=== PATIENT | female | born 2000 | race Caucasian/White ===

== ENCOUNTER → 2019-09-30 10:13 | Outpatient (CLI) | payer OTHER, SELFPAY ==
[2019-09-30 11:14] LABS: Alanine Aminotransferase 23 IU/L (<35); Albumin 4.9 g/dL (3.5-5.0); Albumin Globulin Ratio 1.5 (1.0-2.8); Alkaline Phosphatase 102 U/L (38-126); Aspartate Aminotransferase 24 IU/L (14-36); BUN Creatinine Ratio 13.8 (6-22); Bilirubin Total 0.6 mg/dL (0.2-1.3); Blood Urea Nitrogen 11 mg/dL (7-17); Calcium 10.1 mg/dL (8.4-10.2); Carbon Dioxide 28 mmol/L (22-32); Chloride 102 mmol/L (98-107); Estimated Glomerular Filt Rate > 60.0 mL/min (>60); Globulin 3.2 g/dL (1.7-4.1); Glucose 130 mg/dL (70-100); HEMOLYSIS < 15 (0-50); Potassium 3.5 mmol/L (3.4-5.1); Sodium 142 mmol/L (137-145); Total Protein 8.1 g/dL (6.3-8.2)
[2019-09-30 11:41] LABS: Pregnancy Test Serum,Qual Negative (Negative)
[2019-09-30 11:54] LABS: Free T4, Direct Thyroxine 1.35 ng/dL (0.78-2.19)
[2019-09-30 12:08] LABS: Thyroid Stimulating Hormone 4.35 uIU/mL (0.47-4.68)
[2019-09-30 12:53] LABS: UR Morphine/Opiate cutoff 300 Negative (Negative); Ur Creatinine Normal (Normal); Ur Specific Gravity Normal (Normal); Urine Amphetamines Negative (Negative); Urine Barbiturates Negative (Negative); Urine Benzodiazepines Negative (Negative); Urine Cocaine Negative (Negative); Urine MDMA Negative (Negative); Urine Methadone Negative (Negative); Urine Methamphetamines Negative (Negative); Urine Oxycodone Negative (Negative); Urine Phencyclidine Negative (Negative); Urine Tetrahydrocannabinol Positive (Negative); Urine Tricyclic Antidepressant Negative (Negative); Urine pH Normal (Normal)
[2019-10-04 08:59] LABS: Lamotrigine Lamictal 2.6 mcg/mL (4.0-18.0)
== END ==
PROVIDERS: PCP Family Medicine; Visit Provider Psychiatry & Neurology Psychiatry
DX: F31.73 Bipolar disorder, in partial remission, most recent episode manic (principal)
CPT/HCPCS: 36415; 80053; 80175; 80305; 84439; 84443; 84703

== ENCOUNTER 2020-02-14 15:45 | Emergency (ER) | payer OTHER, MEDICAID, SELFPAY ==
[2020-02-14] VITALS (7 sets, daily range): BP systolic 118–138; BP diastolic 69–85; PULSE 79–115; RESP 18; TEMP 36.3–38.1; O2SAT 96–100; BMI 30.2
[2020-02-14] MEDS: ACETAMINOPHEN 325 MG TABLET 650 MG PO ×2 (17:54→21:47)
[2020-02-14 18:04] LABS: RBC Urine 5-10/HPF (0-5/HPF); Squamous Epithelial Cell Urine >30 /HPF (0-5/HPF)
[2020-02-14 18:05] LABS: Bacteria Urine Many (>30); Culture Indicated Urine Specimen Cultured; Urine Comments LEU ESTERASE +
[2020-02-14 18:06] LABS: WBC Urine 10-30/HPF (0-5/HPF)
[2020-02-14] MEDS: ONDANSETRON 4 MG/2 ML INJ IV (18:45)
[2020-02-14] MEDS: KETOROLAC 60 MG/2 ML VIAL 15 MG IV (18:45)
[2020-02-14] MEDS: SODIUM CHLORIDE 0.9% 1,000 ML 1000 ML IV (18:46)
--- NOTE | 2020-02-14 19:09 | ED.FEVER ---
HPI - Fever <Esvin NILES Ch - Last Filed: 02/14/20 21:51> General Chief Complaint: Fever Stated Complaint: fever, vomiting x36 hours Time Seen by Provider: 02/14/20 18:07 Source: patient Mode of arrival: Ambulatory Limitations: no limitations History of Present Illness HPI Narrative: This is a 19-year-old female, nonsmoker, who presents to ED with significant other with chief complain of fever, nausea and vomiting, and abdominal pain since yesterday morning at 5:00 a.m.. Patient reports T-max at home was 100.6. Pain in abdomen is located in mid abdomen without radiation and had vomited more than 20 times since her symptoms started. Pain is throbbing and sharp in character. Patient reports emesis is bile appearance. Patient denies urinary symptoms such as urgency, frequency, hematuria, dysuria, flank pain. Patient denies diarrhea. Patient states 1st she thought she had food poisoning after she had gathering at her friend's place on Saturday evening and had about 4-5 alcohol drinks over 6 hours. Patient also reports she smokes pot regularly but has not smoked for last 2 days. LMP was 10 days ago which was normal for her. Patient denies cough, sore throat, contact with people who has coronavirus, recent travel, or short of breath. Patient reports occasional headache and body aches. Patient denies chest pain, rash or skin injuries. Related Data Home Medications Medication Instructions Recorded Confirmed cholecalciferol (vitamin D3) 125 5,000 unit PO DAILY 09/30/19 01/06/20 mcg (5,000 unit) capsule omega 9-nbs-frq-fish oil 1,000 mg 1 cap PO DAILY 09/30/19 01/06/20 (120 mg-180 mg) capsule Previous Rx's Medication Instructions Recorded diazepam 5 mg tablet 5 mg PO DAILY PRN #7 tab 12/02/19 propranolol 20 mg tablet 20 mg PO TID #60 tab 12/10/19 lamotrigine 200 mg tablet 200 mg PO BID #60 tab 01/06/20 venlafaxine 150 mg 150 mg PO DAILY #30 cap 01/06/20 capsule,extended release 24 hr gabapentin 300 mg capsule 300 mg PO BID #60 cap 02/08/20 acetaminophen 650 mg NV Q6H PRN #1 each 02/14/20 ondansetron 4 mg PO Q6-8H PRN #7 tab 02/14/20 Allergies Allergy/AdvReac Type Severity Reaction Status Date / Time mirtazapine Allergy Intermediate itching, Verified 01/06/20 10:37 skin crawling sensation sertraline [From Zoloft] AdvReac Severe severe Verified 01/06/20 10:37 migraines Review of Systems <NILES Sandoval - Last Filed: 02/14/20 21:51> Review of Systems Narrative: General: See HPI HEENT: Denies sinus pain, ear pain, sore throat, difficulty swallowing, dizziness. Respiratory: Denies dyspnea, cough, wheezing, hemoptysis, sputum. Cardiovascular: Denies chest pain, palpitations, orthopnea, edema. Gastrointestinal: See HPI : Denies dysuria, frequency, incontinence, hematuria, urinary retention. Musculoskeletal: Denies weakness, joint pain or bony pain, (+) myalgia. Skin: Denies rash, skin lesions, or other. Neurologic: Denies weakness, headache, numbness, change in speech, confusion, seizures, incoordination. Psychiatric: No concerning psychosocial issues. 12-point review of systems is negative except for those stated above. Patient History <NILES Sandoval - Last Filed: 02/14/20 21:51> Medical History Depression (Acute) Social History Smoking Status: Never smoker Smoking Status: Never smoker alcohol intake frequency: a few times a month Alcohol type: beer Substance Use Type: marijuana Exam <NILES Sandoval - Last Filed: 02/14/20 21:51> Narrative Exam Narrative: GEN: Alert, oriented x 3, well appearing and nourished, and in no acute distress. Head: Normal cephalic, atraumatic. No scalp or temporal tenderness, palpable mass or rash. EYES: Pupils are equal, round, and reactive to light and accommodation. Extraocular muscles are intact bilaterally. There is no subconjunctival hemorrhage, exudate and sclera non-icteric. ENT: Hearing grossly intact. Nose without bleeding, purulent discharge or deviation. Mucous membrane moist, no mucosal lesion. Throat without erythema, tonsillar hypertrophy or exudate. Uvula in midline, airway patent. Neck: Trachea in midline. No JVD, non-tender without lymphadenopathy. No masses or thyroid megaly. Supple, non-tender and no meningeal signs. CARDIAC: Normal regular rate and rhythm without murmurs, gallops, or rubs. No chest wall tenderness. No peripheral edema, cyanosis or pallor. Capillary refill is less than 2 seconds. RESPIRATORY: Lungs are clear to auscultate bilaterally. No cough, wheezes, rales, or rhonchi. No stridor, respiratory distress, increase work of breathing, or accessary muscle used. ABD: Abdomen soft and non-distended. Mild discomfort to palpate in mid abdomen. No guarding or rebound tenderness to palpate. Bowel sounds are normal in all 4 quadrants. There is no palpable masses or organomegaly. EXT: Full painless ROM of all extremities with no loss of sensation, strength, effusion or edema. SKIN: Warm, sweaty, normal color for patient. No erythema, lesions or rash over visible areas. BACK: Nontender without deformity or crepitance. No flank tenderness. NEUROLOGICAL: Alert and oriented to place, time and person. Sensation and motor function intact bilaterally. No facial droops, dysphasia. PSYCHIATRIC: Good judgement and reason, without hallucinations, abnormal affect or abnormal behaviors during the examination. Patient is not suicidal. Initial Vital Signs Initial Vital Signs: Vital Signs Temperature 97.3 F L 02/14/20 15:49 Pulse Rate 115 H 02/14/20 15:49 Respiratory Rate 18 02/14/20 15:49 Blood Pressure 138/85 02/14/20 15:49 Pulse Oximetry 97 02/14/20 15:49 <Alpesh Wang DO - Last Filed: 02/15/20 02:40> Initial Vital Signs Initial Vital Signs: Vital Signs Temperature 97.3 F L 02/14/20 15:49 Pulse Rate 115 H 02/14/20 15:49 Respiratory Rate 18 02/14/20 15:49 Blood Pressure 138/85 02/14/20 15:49 Pulse Oximetry 97 02/14/20 15:49 Scores <Esvin NILES Ch - Last Filed: 02/14/20 21:51> GCS [place] coma scale eye opening: Spontaneous [place] coma scale verbal response: Orientated [place] coma scale motor response: Obey commands [place] coma scale total score: 15 Course <Esvin Shields-Johanna PERSON INVESTIGATOR - Last Filed: 02/14/20 21:51> Orders Ordered: ED Orders 02/14/20 17:59 Urine Culture Stat Urine Microscopic Stat 02/14/20 18:51 Comprehensive Metabolic Panel Stat Lactate (Lactic Acid) Stat Lipase Stat Procalcitonin Stat 02/14/20 18:55 Blood Culture Stat Complete Blood Count AUTO DIFF Stat 02/14/20 19:31 CT abdomen pelvis w con Stat Discontinued Medications Acetaminophen (Tylenol) 650 mg PO NOW ONE Stop: 02/14/20 17:48 Last Admin: 02/14/20 17:54 Dose: 650 mg Documented by: MOISÉS Acetaminophen (Tylenol) 650 mg PO NOW ONE Stop: 02/14/20 21:39 Last Admin: 02/14/20 21:47 Dose: 650 mg Documented by: WAYNE Sodium Chloride (Normal Saline 0.9%) 1,000 mls @ 1,000 mls/hr IV BOLUS ONE Stop: 02/14/20 19:27 Last Infusion: 02/14/20 20:38 Dose: 0 mls/hr Documented by: Admin: 02/14/20 18:46 Dose: 1,000 mls/hr Documented by: MOISÉS Ketorolac Tromethamine (Toradol) 15 mg IV NOW ONE Stop: 02/14/20 18:29 Last Admin: 02/14/20 18:45 Dose: 15 mg Documented by: MOISÉS Ondansetron HCl (Zofran) 4 mg IV NOW ONE Stop: 02/14/20 18:29 Last Admin: 02/14/20 18:45 Dose: 4 mg Documented by: MOISÉS Ondansetron HCl (Zofran Odt Prepack) 1 bottle MISC SEEINSTR ONE Stop: 02/14/20 20:40 Last Admin: 02/14/20 21:37 Dose: 1 bottle Documented by: WAYNE Pantoprazole Sodium (Protonix) 40 mg IV NOW ONE Stop: 02/14/20 19:32 Last Admin: 02/14/20 19:56 Dose: 40 mg Documented by: MOISÉS Vital Signs Vital signs: Vital Signs - 8 hr 02/14/20 18:45 02/14/20 19:17 02/14/20 19:19 Temperature 98.8 F 98.8 F Pulse Rate 79 Respiratory Rate Blood Pressure [Left Arm] 132/83 Pulse Oximetry 97 02/14/20 19:30 02/14/20 21:39 02/14/20 21:47 Temperature 100.6 F H 100.6 F H Pulse Rate 92 H 91 H Respiratory Rate 18 Blood Pressure [Left Arm] 128/73 118/69 Pulse Oximetry 100 96 <Alpesh Wang DO - Last Filed: 02/15/20 02:40> Orders Ordered: ED Orders 02/14/20 17:59 Urine Culture Stat Urine Microscopic Stat 02/14/20 18:51 Comprehensive Metabolic Panel Stat Lactate (Lactic Acid) Stat Lipase Stat Procalcitonin Stat 02/14/20 18:55 Blood Culture Stat Complete Blood Count AUTO DIFF Stat 02/14/20 19:31 CT abdomen pelvis w con Stat Discontinued Medications Acetaminophen (Tylenol) 650 mg PO NOW ONE Stop: 02/14/20 17:48 Last Admin: 02/14/20 17:54 Dose: 650 mg Documented by: MOISÉS Acetaminophen (Tylenol) 650 mg PO NOW ONE Stop: 02/14/20 21:39 Last Admin: 02/14/20 21:47 Dose: 650 mg Documented by: WAYNE Sodium Chloride (Normal Saline 0.9%) 1,000 mls @ 1,000 mls/hr IV BOLUS ONE Stop: 02/14/20 19:27 Last Infusion: 02/14/20 20:38 Dose: 0 mls/hr Documented by: Admin: 02/14/20 18:46 Dose: 1,000 mls/hr Documented by: MOISÉS Ketorolac Tromethamine (Toradol) 15 mg IV NOW ONE Stop: 02/14/20 18:29 Last Admin: 02/14/20 18:45 Dose: 15 mg Documented by: MOISÉS Ondansetron HCl (Zofran) 4 mg IV NOW ONE Stop: 02/14/20 18:29 Last Admin: 02/14/20 18:45 Dose: 4 mg Documented by: MOISÉS Ondansetron HCl (Zofran Odt Prepack) 1 bottle MISC SEEINSTR ONE Stop: 02/14/20 20:40 Last Admin: 04/26/20 21:37 Dose: 1 bottle Documented by: WAYNE Pantoprazole Sodium (Protonix) 40 mg IV NOW ONE Stop: 02/14/20 19:32 Last Admin: 02/14/20 19:56 Dose: 40 mg Documented by: BTWM Vital Signs Vital signs: Vital Signs - 8 hr 02/14/20 18:45 02/14/20 19:17 02/14/20 19:19 Temperature 98.8 F 98.8 F Pulse Rate 79 Respiratory Rate Blood Pressure [Left Arm] 132/83 Pulse Oximetry 97 02/14/20 19:30 02/14/20 21:39 02/14/20 21:47 Temperature 100.6 F H 100.6 F H Pulse Rate 92 H 91 H Respiratory Rate 18 Blood Pressure [Left Arm] 128/73 118/69 Pulse Oximetry 100 96 MDM - Fever <Esvin ShieldsNILES Izaguirre - Last Filed: 02/14/20 21:51> Differential Diagnosis Differential diagnosis: Likely fever of unknown origin, gastroenteritis, pyelonephritis, sepsis and other (gastritis, pancreatitis, appendicitis, UTI/cystitis) Medical Records Attestation: I reviewed the patient's medical records. Lab Data Attestation: I reviewed the patient's lab results. Result diagrams: 02/14/20 18:55 02/14/20 18:51 Labs: Lab Results 02/14/20 02/14/20 02/14/20 Range/Units 17:59 18:51 18:51 WBC (4.5-11.0) X10^3/uL RBC (4.0-5.2) X10^6/uL Hgb (12.0-16.0) g/dL Hct (36-46) % MCV (80-100) fL MCH (26-34) PG MCHC (30-36) % RDW (11.6-14.8) % Plt Count (150-400) X10^3/uL Neut % (Auto) (50-75) % Lymph % (Auto) (25-40) % [place] % (Auto) (3-14) % Eos % (Auto) (2-4) % Baso % (Auto) (0-2) % Neut # (Auto) (7877-0496) /uL Lymph # (Auto) (1278-6080) /uL [place] # (Auto) (0-900) /uL Eos # (Auto) (0-450) /uL Baso # (Auto) (0-100) /uL Sodium 139 (137-145) mmol/L Potassium 3.7 (3.4-5.1) mmol/L Chloride 106 (98-107) mmol/L Carbon Dioxide 17 L (22-32) mmol/L BUN 8 (7-17) mg/dL Creatinine 0.69 (0.52-1.04) mg/dL Estimated GFR > 60.0 (>60) mL/min BUN/Creatinine Ratio 11.6 (6-22) Glucose 113 H (70-100) mg/dL Lactate (0.7-2.1) mmol/L Calcium 10.2 (8.4-10.2) mg/dL Total Bilirubin 0.8 (0.2-1.3) mg/dL AST 38 H (14-36) IU/L ALT 44 H (<35) IU/L Alkaline Phosphatase 97 (38-126) U/L Total Protein 9.2 H (6.3-8.2) g/dL Albumin 5.4 H (3.5-5.0) g/dL Globulin 3.8 (1.7-4.1) g/dL Albumin/Globulin Ratio 1.4 (1.0-2.8) Lipase 57 (23-300) U/L Procalcitonin < 0.05 (<0.5) ng/mL Urine RBC 5-10/hpf H (0-5/HPF) Urine WBC 10-30/hpf H (0-5/HPF) Ur Squamous Epith Cells >30 /hpf H (0-5/HPF) Urine Bacteria Many (>30) H (None) Ur Culture Indicated? Specimen cultured Micro UA Comment Nicolás esterase + 02/14/20 02/14/20 Range/Units 18:51 18:55 WBC 13.8 H (4.5-11.0) X10^3/uL RBC 5.85 H (4.0-5.2) X10^6/uL Hgb 17.2 H (12.0-16.0) g/dL Hct 50.3 H (36-46) % MCV 86.0 (80-100) fL MCH 29.3 (26-34) PG MCHC 34.1 (30-36) % RDW 15.6 H (11.6-14.8) % Plt Count 268 (150-400) X10^3/uL Neut % (Auto) 80.3 H (50-75) % Lymph % (Auto) 12.0 L (25-40) % [place] % (Auto) 7.3 (3-14) % Eos % (Auto) 0.1 L (2-4) % Baso % (Auto) 0.3 (0-2) % Neut # (Auto) 74418 H (6257-0106) /uL Lymph # (Auto) 1700 (4396-1774) /uL [place] # (Auto) 1000 H (0-900) /uL Eos # (Auto) 0 (0-450) /uL Baso # (Auto) 0 (0-100) /uL Sodium (137-145) mmol/L Potassium (3.4-5.1) mmol/L Chloride (98-107) mmol/L Carbon Dioxide (22-32) mmol/L BUN (7-17) mg/dL Creatinine (0.52-1.04) mg/dL Estimated GFR (>60) mL/min BUN/Creatinine Ratio (6-22) Glucose (70-100) mg/dL Lactate 1.4 (0.7-2.1) mmol/L Calcium (8.4-10.2) mg/dL Total Bilirubin (0.2-1.3) mg/dL AST (14-36) IU/L ALT (<35) IU/L Alkaline Phosphatase (38-126) U/L Total Protein (6.3-8.2) g/dL Albumin (3.5-5.0) g/dL Globulin (1.7-4.1) g/dL Albumin/Globulin Ratio (1.0-2.8) Lipase (23-300) U/L Procalcitonin (<0.5) ng/mL Urine RBC (0-5/HPF) Urine WBC (0-5/HPF) Ur Squamous Epith Cells (0-5/HPF) Urine Bacteria (None) Ur Culture Indicated? Micro UA Comment Point of Care Testing Test Results Negative Urine Dip Bedside Urine Glucose Negative Bedside Urine Bilirubin + 1 Bedside Urine Ketone +++ 80 Urine Specific [place] 1.030 Bedside Urine Occult Blood +++ Bedside Urine pH 6.0 Bedside Urine Protein +++ 300 Bedside Urine Urobilinogen +/- 1mg Bedside Urine Nitrite - Negative Bedside Urine Leukocytes ++ [address] scan - abdomen/pelvis: Radiologist's Impression: [address] [address] [address] Scan Report Signed Patient: Zenaida Tong MMR#: [id number] : 2000Acct:[id number] Age/Sex: FDate of Service: 02/14/20 Loc: ED Accession Number: [id number] Procedure: CT abdomen pelvis w con Ordering Provider: Esvin Ch PROCEDURE: CT ABDOMEN PELVIS W CON INDICATIONS: mid upper abd pain and fever TECHNIQUE: After the administration of intravenous contrast, 5 mm thick sections acquired from the diaphragm to the symphysis. 5 mm coronal and sagittal reformats were acquired. For radiation dose reduction, the following was used: automated exposure control, adjustment of mA and/or kV according to patient size. COMPARISON: None. FINDINGS: Image quality: Excellent. ABDOMEN: Lung bases: Lung bases are clear. Heart size is normal. Incidental note made of a pectus excavatum deformity. Solid organs: Liver is normal in size and enhancement. Focal fatty infiltration noted in the liver adjacent to the falciform ligament. Gallbladder is within normal limits. Biliary system is non dilated. Pancreas enhances normally. Spleen is normal in size and enhancement. No adrenal nodules. Kidneys demonstrate normal size and enhancement, without hydronephrosis. Peritoneum and bowel: Bowel loops demonstrate normal wall thickness and caliber. No free fluid or air. The appendix is not visualized appendicitis cannot be excluded. Nodes and vessels: No retroperitoneal or mesenteric adenopathy by size criteria. Aorta and inferior vena cava are normal in size. Miscellaneous: No ventral hernias. Umbilical piercing noted. PELVIS: Genitourinary: Bladder wall thickness is normal. There is a 5.1 x 3.1 x 4.2 cm adnexal region cyst. Miscellaneous: No inguinal hernias or adenopathy. Bones: No suspicious bony lesions. No vertebral body compression fractures. IMPRESSION: 1. 5.1 x 3.1 x 4.2 cm right adnexal region cystic lesion. Differential diagnosis includes ovarian cyst, ectopic , tubo-ovarian abscess and endometrioma. Recommend correlation with clinical findings, laboratory data and pelvic ultrasound for further characterization. 2. The appendix is not visualized. Appendicitis cannot be excluded. 3. No free fluid or free air. 4. No dilated loops of bowel. 5. Hepatic steatosis. Dictated by: Karla Ambriz MD, PhD on 02/14/2020 at 20:01 Approved by: Karla Ambriz MD, PhD on 02/14/2020 at 20:08 [facility] Narrative Medical decision making narrative: This is a 19 year old female who presents to ED with significant other with mid upper abdominal discomfort with nausea and vomiting for last 36 hours with fever with T-max of 100.6?. Patient reports she has been having over 20 times of emesis without blood emesis or stools. Upon arrival patient was tachycardic of 116 in rate with normal respiratory rate and blood pressure. She had 4-5 of alcohol drinks in the evening previous day and she also smokes marijuana regularly which she had not smoked for last 2 days. Patient denies previous history of similar symptoms. Patient denies exposure to Covid virus, cough, short of breath, sore throat. POC urine test shows high concentration with occult blood, protein, ketones, urine leukocytes esterase without nitrites. Micro urine test shows small amount of RBC, WBC, many bacteria along squamous epithelia cells which could be contaminated urine sample and culture is pending. Patient was medicated with IV fluid and Zofran which helped her with symptoms. Mildly elevated WBC of 13.8 with neutrophil of 80.3%. H&H is 17.2/50.3 which is slightly above normal range secondary to hemoconcentration. Chemistry test was unremarkable except mildly elevated liver function tests of AST of 38 and ALT of 44. Lipase was normal of 57. Lactate and procalcitonin was within normal. Abdomen and pelvis CT test was added after the blood test was reviewed and it indicates hepatic steatosis with normal gallbladder, biliary system, pancreas, spleen. Appendix was not clearly visualized per CT. Patient's physical exam of abdomen is not consistent with appendicitis. There is a right ovarian cyst measuring in 5.1 x 3.1 x 4.2 cm and patient states she was known for 3 years per pelvic ultrasound in the past with severe abdominal pain. Patient is currently has Nexplanon implant which has been effective for ovarian cyst/pain. Patient denies unusual vaginal discharge or pelvic pain at this time and pelvic exam has been deferred. COVID-19 swab is pending. Patient advised social distancing and self quarantine at home until she hears from us for Covid test result. Two sets of blood culture is pending. There is no clear source of fever found. Patient was feeling better after IV fluid and Zofran and was able to tolerate ice chips without vomiting. Strict return precautions were discussed with the patient and patient is being discharged to home with prepack Zofran and Tylenol per rectal prescription in case patient is not tolerating p.o. Tylenol. Patient verbalized understanding in agreement with treatment plan. <Alpesh Wang, DO - Last Filed: 02/15/20 02:40> Lab Data Labs: Lab Results 02/14/20 02/14/20 02/14/20 Range/Units 17:59 18:51 18:51 WBC (4.5-11.0) X10^3/uL RBC (4.0-5.2) X10^6/uL Hgb (12.0-16.0) g/dL Hct (36-46) % MCV (80-100) fL MCH (26-34) PG MCHC (30-36) % RDW (11.6-14.8) % Plt Count (150-400) X10^3/uL Neut % (Auto) (50-75) % Lymph % (Auto) (25-40) % [place] % (Auto) (3-14) % Eos % (Auto) (2-4) % Baso % (Auto) (0-2) % Neut # (Auto) (0650-3047) /uL Lymph # (Auto) (4574-1878) /uL [place] # (Auto) (0-900) /uL Eos # (Auto) (0-450) /uL Baso # (Auto) (0-100) /uL Sodium 139 (137-145) mmol/L Potassium 3.7 (3.4-5.1) mmol/L Chloride 106 (98-107) mmol/L Carbon Dioxide 17 L (22-32) mmol/L BUN 8 (7-17) mg/dL Creatinine 0.69 (0.52-1.04) mg/dL Estimated GFR > 60.0 (>60) mL/min BUN/Creatinine Ratio 11.6 (6-22) Glucose 113 H (70-100) mg/dL Lactate (0.7-2.1) mmol/L Calcium 10.2 (8.4-10.2) mg/dL Total Bilirubin 0.8 (0.2-1.3) mg/dL AST 38 H (14-36) IU/L ALT 44 H (<35) IU/L Alkaline Phosphatase 97 (38-126) U/L Total Protein 9.2 H (6.3-8.2) g/dL Albumin 5.4 H (3.5-5.0) g/dL Globulin 3.8 (1.7-4.1) g/dL Albumin/Globulin Ratio 1.4 (1.0-2.8) Lipase 57 (23-300) U/L Procalcitonin < 0.05 (<0.5) ng/mL Urine RBC 5-10/hpf H (0-5/HPF) Urine WBC 10-30/hpf H (0-5/HPF) Ur Squamous Epith Cells >30 /hpf H (0-5/HPF) Urine Bacteria Many (>30) H (None) Ur Culture Indicated? Specimen cultured Micro UA Comment Nicolás esterase + 02/14/20 02/14/20 Range/Units 18:51 18:55 WBC 13.8 H (4.5-11.0) X10^3/uL RBC 5.85 H (4.0-5.2) X10^6/uL Hgb 17.2 H (12.0-16.0) g/dL Hct 50.3 H (36-46) % MCV 86.0 (80-100) fL MCH 29.3 (26-34) PG MCHC 34.1 (30-36) % RDW 15.6 H (11.6-14.8) % Plt Count 268 (150-400) X10^3/uL Neut % (Auto) 80.3 H (50-75) % Lymph % (Auto) 12.0 L (25-40) % [place] % (Auto) 7.3 (3-14) % Eos % (Auto) 0.1 L (2-4) % Baso % (Auto) 0.3 (0-2) % Neut # (Auto) 94731 H (1255-3773) /uL Lymph # (Auto) 1700 (4974-1748) /uL [place] # (Auto) 1000 H (0-900) /uL Eos # (Auto) 0 (0-450) /uL Baso # (Auto) 0 (0-100) /uL Sodium (137-145) mmol/L Potassium (3.4-5.1) mmol/L Chloride (98-107) mmol/L Carbon Dioxide (22-32) mmol/L BUN (7-17) mg/dL Creatinine (0.52-1.04) mg/dL Estimated GFR (>60) mL/min BUN/Creatinine Ratio (6-22) Glucose (70-100) mg/dL Lactate 1.4 (0.7-2.1) mmol/L Calcium (8.4-10.2) mg/dL Total Bilirubin (0.2-1.3) mg/dL AST (14-36) IU/L ALT (<35) IU/L Alkaline Phosphatase (38-126) U/L Total Protein (6.3-8.2) g/dL Albumin (3.5-5.0) g/dL Globulin (1.7-4.1) g/dL Albumin/Globulin Ratio (1.0-2.8) Lipase (23-300) U/L Procalcitonin (<0.5) ng/mL Urine RBC (0-5/HPF) Urine WBC (0-5/HPF) Ur Squamous Epith Cells (0-5/HPF) Urine Bacteria (None) Ur Culture Indicated? Micro UA Comment Point of Care Testing Test Results Negative Urine Dip Bedside Urine Glucose Negative Bedside Urine Bilirubin + 1 Bedside Urine Ketone +++ 80 Urine Specific [place] 1.030 Bedside Urine Occult Blood +++ Bedside Urine pH 6.0 Bedside Urine Protein +++ 300 Bedside Urine Urobilinogen +/- 1mg Bedside Urine Nitrite - Negative Bedside Urine Leukocytes ++ 125 Esterase Discharge Plan Departure Patient Disposition: Home Clinical Impression: Fever Qualifiers: Fever type: unspecified Qualified Code(s): R50.9 - Fever, unspecified Abdominal pain Qualifiers: Abdominal location: upper abdomen, unspecified Qualified Code(s): R10.10 - Upper abdominal pain, unspecified Nausea & vomiting Qualifiers: Vomiting type: unspecified Vomiting Intractability: non-intractable Qualified Code(s): R11.2 - Nausea with vomiting, unspecified Discharge Date/Time: 02/14/20 21:49 Instructions: DI for Abdominal Pain-Adult, DI for Fever (Symptom) -- Adult, Nausea and Vomiting-Adult Activity Restrictions/Additional Instructions: You have been diagnosed with [fever, upper abdominal pain, nausea and vomiting. Your urine culture is pending and you will receive a phone call if you require antibiotic medications. There is mildly elevated WBC of 13.8 with stable H&H. Electrolyte/chemistry test were unremarkable but mildly elevated AST of 38 and ALT of 44 (liver function test) with normal lipase. Procalcitonin and lactate which are indicator for severe and bacteria infection are within normal. Urine test for was negative. Focal hepatic steatosis with normal gallbladder, biliary system, pancreas, spleen, kidneys. Appendix was not clearly visualized. There was no indication for bowel obstruction. Right ovarian cyst was appreciated per CT test measuring in 5.1 x 3.1 x 4.2 which you are already aware. Please avoid alcohol drinks and repeat liver function test in the near future.]. What to do: *Take your medications as directed. Please take Zofran as needed for nausea and hydrate adequately with clear liquids. You can take Tylenol and or Motrin as needed for discomfort and fever. I have prescribed Tylenol rectally if you can not tolerate by mouth due to nausea. Additional Zofran and Tylenol have been transmitted to [facility] in [place]. *Follow up with your primary care provider in 2-3 days, call for an appointment. Let them know you were seen in the ED and that we asked you to be seen in follow up. *Return to ED if you have any new, worsening, or concerning symptoms, such as [increasing pain and fever, chest pain, breathing difficulty, unable to tolerate fluids, feeling like faint or any acute concerns]. Prescriptions: New acetaminophen 650 mg suppository 650 mg NV Q6H PRN (Reason: fever or pain) Qty: 1 RF: 0 ondansetron 4 mg tablet,disintegrating 4 mg PO Q6-8H PRN (Reason: nausea and vomiting) Qty: 7 RF: 0 No Action lamotrigine 200 mg tablet 200 mg PO BID Qty: 60 RF: 3 venlafaxine 150 mg capsule,extended release 24hr 150 mg PO DAILY Qty: 30 RF: 3 propranolol 20 mg tablet 20 mg PO TID Qty: 60 RF: 2 cholecalciferol (vitamin D3) 5,000 unit capsule 5,000 unit PO DAILY RF: 0 omega 1-jdq-lhi-fish oil [Fish Oil] 1,000 mg (120 mg-180 mg) capsule 1 cap PO DAILY RF: 0 diazepam 5 mg tablet 5 mg PO DAILY PRN (Reason: muscle spasm) Qty: 7 RF: 0 gabapentin 300 mg capsule 300 mg PO BID Qty: 60 RF: 3 Referrals: [facility] [Outside] <Alpesh Wang DO - Last Filed: 02/15/20 02:40> Cosign ED Attending Cosignature Attestation: I was immediately available in the department for consultation. This documentation has been reviewed and I agree with assessment and plan. Supervised by Alpesh Wang DO
[2020-02-14 19:21] LABS: Lactate (Lactic Acid) 1.4 mmol/L (0.7-2.1)
[2020-02-14 19:22] LABS: Alanine Aminotransferase 44 IU/L (<35); Albumin 5.4 g/dL (3.5-5.0); Albumin Globulin Ratio 1.4 (1.0-2.8); Alkaline Phosphatase 97 U/L (38-126); Aspartate Aminotransferase 38 IU/L (14-36); BUN Creatinine Ratio 11.6 (6-22); Bilirubin Total 0.8 mg/dL (0.2-1.3); Blood Urea Nitrogen 8 mg/dL (7-17); Calcium 10.2 mg/dL (8.4-10.2); Carbon Dioxide 17 mmol/L (22-32); Chloride 106 mmol/L (98-107); Estimated Glomerular Filt Rate > 60.0 mL/min (>60); Globulin 3.8 g/dL (1.7-4.1); Glucose 113 mg/dL (70-100); HEMOLYSIS 24 (0-50); Lipase 57 U/L (23-300); Potassium 3.7 mmol/L (3.4-5.1); Sodium 139 mmol/L (137-145); Total Protein 9.2 g/dL (6.3-8.2)
[2020-02-14 19:24] LABS: Add Manual Diff / Slide Review NO; Basophils Absolute Auto 0 /uL (0-100); Basophils Percent Auto 0.3 % (0-2); Eosinophils Absolute Auto 0 /uL (0-450); Eosinophils Percent Auto 0.1 % (2-4); Hematocrit 50.3 % (36-46); Hemoglobin 17.2 g/dL (12.0-16.0); Lymphocytes Absolute Auto 1700 /uL (1100-4500); Mean Corpuscular HGB Conc 34.1 % (30-36); Mean Corpuscular Hemoglobin 29.3 PG (26-34); Monocytes Absolute Auto 1000 /uL (0-900); Monocytes Percent Auto 7.3 % (3-14); Neutrophils Absolute Auto 11000 /uL (1500-7000); Neutrophils Percent Auto 80.3 % (50-75); Platelet Count 268 X10^3/uL (150-400); Red Blood Cell Count 5.85 X10^6/uL (4.0-5.2); Red Cell Distribution Width 15.6 % (11.6-14.8); White Blood Cell Count 13.8 X10^3/uL (4.5-11.0)
--- NOTE | 2020-02-14 19:31 | DI.CT.S_ITS ---
PROCEDURE: CT ABDOMEN PELVIS W CON INDICATIONS: mid upper abd pain and fever TECHNIQUE: After the administration of intravenous contrast, 5 mm thick sections acquired from the diaphragm to the symphysis. 5 mm coronal and sagittal reformats were acquired. For radiation dose reduction, the following was used: automated exposure control, adjustment of mA and/or kV according to patient size. COMPARISON: None. FINDINGS: Image quality: Excellent. ABDOMEN: Lung bases: Lung bases are clear. Heart size is normal. Incidental note made of a pectus excavatum deformity. Solid organs: Liver is normal in size and enhancement. Focal fatty infiltration noted in the liver adjacent to the falciform ligament. Gallbladder is within normal limits. Biliary system is non dilated. Pancreas enhances normally. Spleen is normal in size and enhancement. No adrenal nodules. Kidneys demonstrate normal size and enhancement, without hydronephrosis. Peritoneum and bowel: Bowel loops demonstrate normal wall thickness and caliber. No free fluid or air. The appendix is not visualized appendicitis cannot be excluded. Nodes and vessels: No retroperitoneal or mesenteric adenopathy by size criteria. Aorta and inferior vena cava are normal in size. Miscellaneous: No ventral hernias. Umbilical piercing noted. PELVIS: Genitourinary: Bladder wall thickness is normal. There is a 5.1 x 3.1 x 4.2 cm adnexal region cyst. Miscellaneous: No inguinal hernias or adenopathy. Bones: No suspicious bony lesions. No vertebral body compression fractures. IMPRESSION: 1. 5.1 x 3.1 x 4.2 cm right adnexal region cystic lesion. Differential diagnosis includes ovarian cyst, ectopic , tubo-ovarian abscess and endometrioma. Recommend correlation with clinical findings, laboratory data and pelvic ultrasound for further characterization. 2. The appendix is not visualized. Appendicitis cannot be excluded. 3. No free fluid or free air. 4. No dilated loops of bowel. 5. Hepatic steatosis. Dictated by: Karla Ambriz MD, PhD on 02/14/2020 at 20:01 Approved by: Karla Ambriz MD, PhD on 02/14/2020 at 20:08
--- NOTE | 2020-02-14 19:44 | PC.NURSE ---
pt states she has felt nauseated and vomited once.
[2020-02-14] MEDS: PANTOPRAZOLE 40 MG VIAL IV (19:56)
[2020-02-14 20:01] LABS: Procalcitonin < 0.05 ng/mL (<0.5)
[2020-02-14] MEDS: ONDANSETRON 4 MG ODT PREPACK 1 BOTTLE MISC (21:37)
[2020-02-15 17:57] LABS: COVID19 Sendout Not Detected (Not Detect)
== END 2020-02-14 21:49 | disposition home or self-care (01) ==
PROVIDERS: Emergency Medicine; Emergency Provider Nurse Practitioner Family; PCP Family Medicine
DX: R50.9 Fever, unspecified (principal); R10.10 Upper abdominal pain, unspecified; R11.2 Nausea with vomiting, unspecified
CPT/HCPCS: 36415; 74177; 80053; 81003; 81015; 81025; 83605; 83690; 84145; 85025; 87040; 87086; 87635; 96361; 96374; 96375; 99284; C9113; J1885; J2405; Q9967

== ENCOUNTER → 2020-04-18 08:38 | Outpatient (CLI) | payer OTHER, MEDICAID, SELFPAY ==
[2020-04-18 10:25] LABS: Alanine Aminotransferase 23 IU/L (<35); Albumin 4.2 g/dL (3.5-5.0); Albumin Globulin Ratio 1.7 (1.0-2.8); Alkaline Phosphatase 80 U/L (38-126); Aspartate Aminotransferase 23 IU/L (14-36); BUN Creatinine Ratio 13.8 (6-22); Bilirubin Total 0.3 mg/dL (0.2-1.3); Blood Urea Nitrogen 9 mg/dL (7-17); Calcium 9.5 mg/dL (8.4-10.2); Carbon Dioxide 25 mmol/L (22-32); Chloride 105 mmol/L (98-107); Estimated Glomerular Filt Rate > 60.0 mL/min (>60); Globulin 2.5 g/dL (1.7-4.1); Glucose 99 mg/dL (70-100); HEMOLYSIS < 15 (0-50); Sodium 137 mmol/L (137-145); Total Protein 6.7 g/dL (6.3-8.2)
== END ==
PROVIDERS: PCP Family Medicine; Referring Provider Psychiatry & Neurology Psychiatry; Visit Provider Psychiatry & Neurology Psychiatry
DX: F31.4 Bipolar disorder, current episode depressed, severe, without psychotic features (principal); F41.1 Generalized anxiety disorder; M79.7 Fibromyalgia
CPT/HCPCS: 36415; 80053; 80175; 99214

== ENCOUNTER → 2020-10-04 10:27 | Outpatient (CLI) | payer OTHER, MEDICAID, SELFPAY ==
[2020-10-04 11:05] LABS: Alanine Aminotransferase 26 IU/L (<35); Albumin 4.8 g/dL (3.5-5.0); Albumin Globulin Ratio 1.4 (1.0-2.8); Alkaline Phosphatase 74 U/L (38-126); Aspartate Aminotransferase 22 IU/L (14-36); BUN Creatinine Ratio 26.1 (6-22); Bilirubin Total 0.3 mg/dL (0.2-1.3); Blood Urea Nitrogen 18 mg/dL (7-17); Calcium 10.2 mg/dL (8.4-10.2); Carbon Dioxide 28 mmol/L (22-32); Chloride 103 mmol/L (98-107); Estimated Glomerular Filt Rate > 60.0 mL/min (>60); Globulin 3.4 g/dL (1.7-4.1); Glucose 107 mg/dL (70-100); HEMOLYSIS < 15 (0-50); Potassium 4.5 mmol/L (3.4-5.1); Sodium 137 mmol/L (137-145); Total Protein 8.2 g/dL (6.3-8.2)
[2020-10-07 13:22] LABS: Lamotrigine Lamictal 3.4 ug/mL (2.0-20.0)
== END ==
PROVIDERS: PCP Family Medicine; Referring Provider Psychiatry & Neurology Psychiatry; Visit Provider Psychiatry & Neurology Psychiatry
DX: F31.4 Bipolar disorder, current episode depressed, severe, without psychotic features (principal); F41.1 Generalized anxiety disorder; M79.7 Fibromyalgia
CPT/HCPCS: 36415; 80053; 80175; 99214

== ENCOUNTER 2020-10-24 13:17 | Emergency (ER) | payer OTHER, MEDICAID, SELFPAY ==
[2020-10-24 13:32] VITALS: BP 133/86; PULSE 63; RESP 18; TEMP 36.3; O2SAT 100
--- NOTE | 2020-10-24 15:10 | ED.NAVMDI ---
HPI - Nausea/Vomiting/Diarrhea General Chief complaint: Nausea/Vomiting/Diarrhea Stated complaint: Throwing Up Every Hour Time Seen by Provider: 10/24/20 14:19 Source: patient Mode of arrival: Ambulatory Limitations: no limitations History of Present Illness HPI Narrative: This a 20-year-old female comes emergency department with complaint of vomiting that started yesterday at 10:30 a.m.. Patient states that she has had abdominal pain she locates it epigastric to left upper quadrant. She states she has been able to keep down a very minimal amount of water. Does not radiate to her chest. She denies shortness of breath. She was very diaphoretic yesterday. She has had normal bowel movements including yesterday. No melena, no hematochezia, no diarrhea constipation. No urinary frequency dysuria urgency. She has been having some vaginal bleeding and states she has very irregular periods. Patient states she does not typically get sick like this with menstruation. No vaginal discharge. She denies any back or flank pain. She takes several medications for anxiety and bipolar and has had difficulty keeping down. Related Data Previous Rx's Medication Instructions Recorded gabapentin 100 mg capsule See Rx Instructions PO BEDTIME 08/03/20 #210 cap lamotrigine 200 mg tablet 200 mg PO BID #60 tab 08/03/20 propranolol 20 mg tablet 20 mg PO TID #60 tab 08/03/20 quetiapine 25 mg tablet 25 mg PO TID #90 tab 08/03/20 venlafaxine 75 mg tablet,extended 75 mg PO DAILY #30 tab 08/03/20 release 24 hr prazosin 1 mg capsule 3 mg PO BEDTIME #60 cap 10/04/20 ondansetron HCl [Zofran] 4 mg PO Q6H PRN #5 tab 10/24/20 Allergies Allergy/AdvReac Type Severity Reaction Status Date / Time mirtazapine Allergy Intermediate itching, Verified 08/03/20 10:11 skin crawling sensation sertraline [From Zoloft] AdvReac Severe severe Verified 08/03/20 10:11 migraines Review of Systems Review of Systems ROS Unobtainable: All systems reviewed & are unremarkable except as noted in HPI and below Patient History Medical History (Updated 10/24/20 @ 16:42 by Reny Kevin DO) Depression Social History Smoking Status: Never smoker Smoking Status: Never smoker alcohol intake frequency: a few times a month Alcohol type: beer Substance Use Type: marijuana Exam Narrative Exam Narrative: GENERAL: Alert and oriented x three, well-nourished female in mild distress. HEENT: Head normocephalic, atraumatic, EOMI, pupils reactive, face symmetric, moist mucous membranes NECK: Supple, full range of motion CARDIOVASCULAR: Regular rate and rhythm without murmurs, rubs or gallops. RESPIRATORY: Breath sounds equal bilaterally, no wheezes rales or rhonchi. ABDOMEN: Soft, nontender to palpation. Normoactive bowel sounds all 4 quadrants. No guarding or rebound, rigidity, no mass : No CVA tenderness EXTREMITIES: Normal range of motion, no clubbing or edema. Neurovascularly intact NEUROLOGICAL: Cranial nerves II through XII grossly intact. Moving all extremities SKIN: Warm, dry, no petechiae, no rashes or lesions. Initial Vital Signs Initial Vital Signs: Vital Signs Temperature 97.3 F L 10/24/20 13:32 Pulse Rate 63 10/24/20 13:32 Respiratory Rate 18 10/24/20 13:32 Blood Pressure 133/86 10/24/20 13:32 Pulse Oximetry 100 10/24/20 13:32 Course Orders Ordered: ED Orders 10/24/20 15:06 COVID19 Stat Complete Blood Count AUTO DIFF Stat Comprehensive Metabolic Panel Stat 10/24/20 16:01 Lipase Stat 10/24/20 16:36 Urine Microscopic Stat Discontinued Medications Sodium Chloride (Normal Saline 0.9%) 1,000 mls @ 1,000 mls/hr IV BOLUS ONE Stop: 10/24/20 14:36 Last Infusion: 10/24/20 16:21 Dose: 0 mls/hr Documented by: Admin: 10/24/20 15:13 Dose: 1,000 mls/hr Documented by: LALI Sodium Chloride (Normal Saline 0.9%) 1,000 mls @ 1,000 mls/hr IV BOLUS ONE Stop: 10/24/20 17:25 Last Infusion: 10/24/20 17:03 Dose: 0 mls/hr Documented by: Admin: 10/24/20 16:31 Dose: 1,000 mls/hr Documented by: LALI Ondansetron HCl (Ondansetron 4 Mg/2 Ml Inj) 4 mg IV NOW ONE Stop: 10/24/20 13:38 Last Admin: 10/24/20 15:13 Dose: 4 mg Documented by: LALI Ondansetron HCl (Ondansetron 4 Mg/2 Ml Inj) 4 mg IV NOW ONE Stop: 10/24/20 16:02 Last Admin: 10/24/20 16:06 Dose: 4 mg Documented by: LALI Reevaluation(s) Time: 16:43 Vital Signs Vital signs: Vital Signs - 8 hr 10/24/20 13:32 10/24/20 17:09 Temperature 97.3 F L Pulse Rate 63 73 Respiratory Rate 18 24 Blood Pressure 133/86 132/77 Pulse Oximetry 100 97 MDM - Nausea/Vomiting/Diarrhea Lab Data Attestation: I reviewed the patient's lab results. Result diagrams: 10/24/20 15:06 10/24/20 15:06 Labs: Lab Results 10/24/20 10/24/20 10/24/20 Range/Units 15:06 15:06 15:06 WBC 12.0 H (4.5-11.0) X10^3/uL RBC 5.11 (4.0-5.2) X10^6/uL Hgb 14.4 (12.0-16.0) g/dL Hct 43.1 (36-46) % MCV 84.3 (80-100) fL MCH 28.2 (26-34) PG MCHC 33.4 (30-36) % RDW 14.9 H (11.6-14.8) % Plt Count 245 (150-400) X10^3/uL Neut % (Auto) 87.7 H (50-75) % Lymph % (Auto) 7.9 L (25-40) % [place] % (Auto) 4.0 (3-14) % Eos % (Auto) 0.0 L (2-4) % Baso % (Auto) 0.4 (0-2) % Neut # (Auto) 99595 H (2599-2625) /uL Lymph # (Auto) 1000 L (8225-5021) /uL [place] # (Auto) 500 (0-900) /uL Eos # (Auto) 0 (0-450) /uL Baso # (Auto) 0 (0-100) /uL Sodium 137 (137-145) mmol/L Potassium 3.5 (3.4-5.1) mmol/L Chloride 104 (98-107) mmol/L Carbon Dioxide 24 (22-32) mmol/L BUN 9 (7-17) mg/dL Creatinine 0.59 (0.52-1.04) mg/dL Estimated GFR > 60.0 (>60) mL/min BUN/Creatinine Ratio 15.3 (6-22) Glucose 130 H (70-100) mg/dL Calcium 9.6 (8.4-10.2) mg/dL Total Bilirubin 0.7 (0.2-1.3) mg/dL AST 30 (14-36) IU/L ALT 31 (<35) IU/L Alkaline Phosphatase 94 (38-126) U/L Total Protein 8.2 (6.3-8.2) g/dL Albumin 4.9 (3.5-5.0) g/dL Globulin 3.3 (1.7-4.1) g/dL Albumin/Globulin Ratio 1.5 (1.0-2.8) Lipase (23-300) U/L Urine RBC (0-5/HPF) Urine WBC (0-5/HPF) Ur Squamous Epith Cells (0-5/HPF) Urine Bacteria (None) Ur Culture Indicated? SARS-CoV-2 (PCR) Negative (Negative) 10/24/20 10/24/20 Range/Units 16:01 16:36 WBC (4.5-11.0) X10^3/uL RBC (4.0-5.2) X10^6/uL Hgb (12.0-16.0) g/dL Hct (36-46) % MCV (80-100) fL MCH (26-34) PG MCHC (30-36) % RDW (11.6-14.8) % Plt Count (150-400) X10^3/uL Neut % (Auto) (50-75) % Lymph % (Auto) (25-40) % [place] % (Auto) (3-14) % Eos % (Auto) (2-4) % Baso % (Auto) (0-2) % Neut # (Auto) (2757-5910) /uL Lymph # (Auto) (2116-2587) /uL [place] # (Auto) (0-900) /uL Eos # (Auto) (0-450) /uL Baso # (Auto) (0-100) /uL Sodium (137-145) mmol/L Potassium (3.4-5.1) mmol/L Chloride (98-107) mmol/L Carbon Dioxide (22-32) mmol/L BUN (7-17) mg/dL Creatinine (0.52-1.04) mg/dL Estimated GFR (>60) mL/min BUN/Creatinine Ratio (6-22) Glucose (70-100) mg/dL Calcium (8.4-10.2) mg/dL Total Bilirubin (0.2-1.3) mg/dL AST (14-36) IU/L ALT (<35) IU/L Alkaline Phosphatase (38-126) U/L Total Protein (6.3-8.2) g/dL Albumin (3.5-5.0) g/dL Globulin (1.7-4.1) g/dL Albumin/Globulin Ratio (1.0-2.8) Lipase 32 (23-300) U/L Urine RBC 1-5/hpf (0-5/HPF) Urine WBC 0-1/hpf (0-5/HPF) Ur Squamous Epith Cells 1-5 /hpf D (0-5/HPF) Urine Bacteria Few (2-10) H (None) Ur Culture Indicated? Cult not indicated SARS-CoV-2 (PCR) (Negative) Point of Care Testing Test Results Negative Urine Dip Bedside Urine Glucose Negative Bedside Urine Bilirubin - Negative Bedside Urine Ketone +++ 80 Urine Specific [place] 1.025 Bedside Urine Occult Blood +++ Bedside Urine pH 6.0 Bedside Urine Protein + 30 Bedside Urine Urobilinogen - Negative Bedside Urine Nitrite - Negative Bedside Urine Leukocytes - Negative Esterase MDM Narrative Medical decision making narrative: 20-year-old female comes with complaint of vomiting. Patient has ketones consistent with dehydration. No other major lab abnormalities or significant electrolyte abnormalities. Patient's abdominal labs are normal. She has benign abdominal exam. COVID is negative. Negative for . Patient primarily concerned because she has been unable to keep down her psychiatric medications. She is not having any major changes currently in her mood or a bipolar. Patient received 2 L of fluids in the department, Zofran p.o. for home and asked her to restart her medications either this evening or 1st thing in the morning if she is tolerating small amounts of fluids. I did encourage her to return if she continues to have vomiting or if she is having worsening symptoms and other forms. Discharge Plan Departure Patient Disposition: Home Clinical Impression: Vomiting Instructions: DI for Vomiting -- Adult Activity Restrictions/Additional Instructions: Follow-up with your physician in the next several days if your symptoms have not totally resolved. You may continue with Zofran 1 tablet every 6 hours as needed for nausea. I would continue to slowly advance her diet as tolerated. Only sips and ice chips for the next several hours and then you may continue to advance amount of fluids followed by solids tomorrow. Return for fevers, severe abdominal pain, persistent vomiting, black or bloody stools, inability to have a bowel movement, decrease in urine output, lightheadedness, passing out or other new or concerning symptoms. Prescriptions: New ondansetron HCl [Zofran] 4 mg tablet 4 mg PO Q6H PRN (Reason: nausea and vomiting) Qty: 5 RF: 0 No Action venlafaxine 75 mg tablet extended release 24hr 75 mg PO DAILY Qty: 30 RF: 3 gabapentin 100 mg capsule See Rx Instructions PO BEDTIME Qty: 210 RF: 3 lamotrigine 200 mg tablet 200 mg PO BID Qty: 60 RF: 3 propranolol 20 mg tablet 20 mg PO TID Qty: 60 RF: 3 quetiapine 25 mg tablet 25 mg PO TID Qty: 90 RF: 3 prazosin 1 mg capsule 3 mg PO BEDTIME Qty: 60 RF: 3 Referrals: Kisha Lucio MD [Primary Care Provider] -
[2020-10-24] MEDS: ONDANSETRON 4 MG/2 ML INJ IV ×2 (15:13→16:06)
[2020-10-24] MEDS: SODIUM CHLORIDE 0.9% 1,000 ML 1000 ML IV ×2 (15:13→16:31)
[2020-10-24 15:18] LABS: Add Manual Diff / Slide Review NO; Basophils Absolute Auto 0 /uL (0-100); Basophils Percent Auto 0.4 % (0-2); Eosinophils Absolute Auto 0 /uL (0-450); Hematocrit 43.1 % (36-46); Hemoglobin 14.4 g/dL (12.0-16.0); Lymphocytes Absolute Auto 1000 /uL (1100-4500); Lymphocytes Percent Auto 7.9 % (25-40); Mean Corpuscular HGB Conc 33.4 % (30-36); Mean Corpuscular Hemoglobin 28.2 PG (26-34); Mean Corpuscular Volume 84.3 fL (80-100); Monocytes Absolute Auto 500 /uL (0-900); Neutrophils Absolute Auto 10500 /uL (1500-7000); Neutrophils Percent Auto 87.7 % (50-75); Platelet Count 245 X10^3/uL (150-400); Red Blood Cell Count 5.11 X10^6/uL (4.0-5.2); Red Cell Distribution Width 14.9 % (11.6-14.8)
[2020-10-24 15:27] LABS: Alanine Aminotransferase 31 IU/L (<35); Albumin 4.9 g/dL (3.5-5.0); Albumin Globulin Ratio 1.5 (1.0-2.8); Alkaline Phosphatase 94 U/L (38-126); Aspartate Aminotransferase 30 IU/L (14-36); BUN Creatinine Ratio 15.3 (6-22); Bilirubin Total 0.7 mg/dL (0.2-1.3); Blood Urea Nitrogen 9 mg/dL (7-17); Calcium 9.6 mg/dL (8.4-10.2); Carbon Dioxide 24 mmol/L (22-32); Chloride 104 mmol/L (98-107); Estimated Glomerular Filt Rate > 60.0 mL/min (>60); Globulin 3.3 g/dL (1.7-4.1); Glucose 130 mg/dL (70-100); HEMOLYSIS < 15 (0-50); Potassium 3.5 mmol/L (3.4-5.1); Sodium 137 mmol/L (137-145); Total Protein 8.2 g/dL (6.3-8.2)
[2020-10-24 15:49] LABS: COVID19 -Nasal RAPID Negative (Negative)
[2020-10-24 16:08] LABS: Lipase 32 U/L (23-300)
[2020-10-24 16:56] LABS: RBC Urine 1-5/HPF (0-5/HPF); Squamous Epithelial Cell Urine 1-5 /HPF (0-5/HPF); WBC Urine 0-1/HPF (0-5/HPF)
[2020-10-24 16:57] LABS: Bacteria Urine Few (2-10); Culture Indicated Urine Cult Not Indicated
[2020-10-24 17:09] VITALS: BP 132/77; PULSE 73; RESP 24; O2SAT 97
== END 2020-10-24 17:10 | disposition home or self-care (01) ==
PROVIDERS: Emergency Provider Emergency Medicine; PCP Family Medicine
DX: R11.10 Vomiting, unspecified (principal); R10.13 Epigastric pain; Z20.822 Contact with and (suspected) exposure to COVID-19
CPT/HCPCS: 36415; 80053; 81003; 81015; 81025; 83690; 85025; 87635; 96361; 96374; 96376; 99281; 99284; C9803; J2405

== ENCOUNTER → 2021-04-18 10:39 | Outpatient (CLI) | payer OTHER, MEDICAID, SELFPAY ==
[2021-04-18 12:42] LABS: Add Manual Diff / Slide Review NO; Basophils Absolute Auto 0 /uL (0-100); Basophils Percent Auto 0.4 % (0-2); Eosinophils Absolute Auto 200 /uL (0-450); Eosinophils Percent Auto 1.9 % (2-4); Hematocrit 42.2 % (36-46); Hemoglobin 13.7 g/dL (12.0-16.0); Lymphocytes Absolute Auto 2400 /uL (1100-4500); Lymphocytes Percent Auto 23.7 % (25-40); Mean Corpuscular HGB Conc 32.5 % (30-36); Mean Corpuscular Hemoglobin 27.6 PG (26-34); Monocytes Absolute Auto 600 /uL (0-900); Monocytes Percent Auto 6.1 % (3-14); Neutrophils Absolute Auto 6800 /uL (1500-7000); Neutrophils Percent Auto 67.9 % (50-75); Platelet Count 220 X10^3/uL (150-400); Red Blood Cell Count 4.97 X10^6/uL (4.0-5.2); Red Cell Distribution Width 15.4 % (11.6-14.8); White Blood Cell Count 10.1 X10^3/uL (4.5-11.0)
[2021-04-18 13:25] LABS: Free T4, Direct Thyroxine 0.99 ng/dL (0.78-2.19)
[2021-04-18 13:39] LABS: Thyroid Stimulating Hormone 1.92 uIU/mL (0.47-4.68)
[2021-04-18 16:59] LABS: Alanine Aminotransferase 23 IU/L (<35); Albumin 4.1 g/dL (3.5-5.0); Albumin Globulin Ratio 1.5 (1.0-2.8); Alkaline Phosphatase 82 U/L (38-126); Aspartate Aminotransferase 27 IU/L (14-36); BUN Creatinine Ratio 11.8 (6-22); Bilirubin Total 0.2 mg/dL (0.2-1.3); Blood Urea Nitrogen 8 mg/dL (7-17); Calcium 9.1 mg/dL (8.4-10.2); Carbon Dioxide 26 mmol/L (22-32); Chloride 106 mmol/L (98-107); Estimated Glomerular Filt Rate > 60.0 mL/min (>60); Globulin 2.8 g/dL (1.7-4.1); Glucose 94 mg/dL (70-100); HEMOLYSIS < 15 (0-50); Potassium 3.9 mmol/L (3.4-5.1); Sodium 139 mmol/L (137-145); Total Protein 6.9 g/dL (6.3-8.2)
[2021-04-20 15:21] LABS: Lamotrigine Lamictal 4.8 ug/mL (2.0-20.0)
== END ==
PROVIDERS: PCP Registered Nurse; Referring Provider Psychiatry & Neurology Psychiatry; Visit Provider Psychiatry & Neurology Psychiatry
DX: F31.4 Bipolar disorder, current episode depressed, severe, without psychotic features (principal); D72.9 Disorder of white blood cells, unspecified; F41.8 Other specified anxiety disorders; Z00.00 Encounter for general adult medical examination without abnormal findings; F41.1 Generalized anxiety disorder; M79.7 Fibromyalgia; F43.10 Post-traumatic stress disorder, unspecified
CPT/HCPCS: 36415; 80053; 80175; 84439; 84443; 85025; 90833; 99214

== ENCOUNTER 2021-08-27 12:57 | Emergency (ER) | payer OTHER, MEDICAID, SELFPAY ==
[2021-08-27 13:06] VITALS: BP 128/62; PULSE 83; RESP 18; TEMP 36.8; O2SAT 97; BMI 31.4
[2021-08-27 14:02] LABS: COVID19 -Nasal RAPID Negative (Negative)
[2021-08-27 16:15] VITALS: PULSE 75; O2SAT 99
[2021-08-27 16:16] VITALS: BP 163/78; PULSE 60; RESP 15; O2SAT 99
[2021-08-27] MEDS: SODIUM CHLORIDE 0.9% 1,000 ML 1000 ML IV (16:34)
[2021-08-27] MEDS: ONDANSETRON 4 MG/2 ML INJ (16:36)
[2021-08-27 16:47] LABS: Add Manual Diff / Slide Review NO; Basophils Absolute Auto 0 /uL (0-100); Basophils Percent Auto 0.1 % (0-2); Eosinophils Absolute Auto 0 /uL (0-450); Hematocrit 46.2 % (36-46); Hemoglobin 15.3 g/dL (12.0-16.0); Lymphocytes Absolute Auto 1400 /uL (1100-4500); Mean Corpuscular HGB Conc 33.2 % (30-36); Mean Corpuscular Volume 84.4 fL (80-100); Monocytes Absolute Auto 400 /uL (0-900); Monocytes Percent Auto 2.9 % (3-14); Neutrophils Absolute Auto 12000 /uL (1500-7000); Platelet Count 266 X10^3/uL (150-400); Red Blood Cell Count 5.48 X10^6/uL (4.0-5.2); Red Cell Distribution Width 13.9 % (11.6-14.8); White Blood Cell Count 13.8 X10^3/uL (4.5-11.0)
[2021-08-27 16:59] LABS: Alanine Aminotransferase 22 IU/L (<35); Albumin 5.6 g/dL (3.5-5.0); Albumin Globulin Ratio 1.5 (1.0-2.8); Alkaline Phosphatase 99 U/L (38-126); Aspartate Aminotransferase 27 IU/L (14-36); BUN Creatinine Ratio 9.3 (6-22); Bilirubin Total 0.9 mg/dL (0.2-1.3); Blood Urea Nitrogen 7 mg/dL (7-17); Calcium 10.8 mg/dL (8.4-10.2); Carbon Dioxide 23 mmol/L (22-32); Chloride 102 mmol/L (98-107); Estimated Glomerular Filt Rate > 60.0 mL/min (>60); Globulin 3.7 g/dL (1.7-4.1); Glucose 121 mg/dL (70-100); HEMOLYSIS < 15 (0-50); Lipase 48 U/L (23-300); Potassium 3.9 mmol/L (3.4-5.1); Sodium 140 mmol/L (137-145); Total Protein 9.3 g/dL (6.3-8.2)
--- NOTE | 2021-08-27 17:17 | ED_ITS ---
HPI - Nausea/Vomiting/Diarrhea General Chief complaint: Nausea/Vomiting/Diarrhea Stated complaint: THROWING UP FOR 14 HOURS Time Seen by Provider: 08/27/21 16:30 Source: patient Mode of arrival: Family Vehicle Limitations: no limitations History of Present Illness HPI Narrative: Patient is a 20-year-old male history of bipolar PTSD depression and anxiety presenting with vomiting. She apparently got off work last night at 10:30 a.m. she went to a bar she had 1 drink some appetizers came home and has been vomiting ever since. No diarrhea. She has diffuse all-over pain. No fever or chills. Unable to keep anything down. Now after Zofran is starting feel better. Related Data Previous Rx's Medication Instructions Recorded ondansetron HCl 4 mg tablet 4 mg PO Q6H PRN #5 tab 10/24/20 (Zofran) lamotrigine 200 mg tablet 200 mg PO BID #180 tab 12/05/20 quetiapine 25 mg tablet 25 mg PO TID #270 tab 12/05/20 prazosin 2 mg capsule See Rx Instructions .ROUTE 08/08/21 .COMPLEX #90 cap gabapentin 300 mg capsule 600 mg PO TID #360 cap 08/22/21 ondansetron 4 mg disintegrating 4 mg PO Q8H PRN #10 tab 08/27/21 tablet Allergies Allergy/AdvReac Type Severity Reaction Status Date / Time mirtazapine Allergy Intermediate itching, Verified 08/27/21 13:05 skin crawling sensation sertraline [From Zoloft] AdvReac Severe severe Verified 08/27/21 13:05 migraines Venlafaxine Analogues AdvReac Intermediate Headache Verified 08/27/21 13:05 Review of Systems Review of Systems Narrative: GENERAL: Denies chills, fatigue, malaise, fever, sweats, travel HEENT: Denies sinus pain, ear pain, sore throat, difficulty swallowing, neck pain RESPIRATORY: Denies dyspnea, cough, wheezing, hemoptysis, sputum. CARDIOVASCULAR: Denies chest pain, palpitations, orthopnea, edema GASTROINTESTINAL: See HPI : Denies dysuria, frequency, incontinence, hematuria, urinary retention, flank pain. MUSCULOSKELETAL: Denies weakness, joint pain, or bony pain SKIN: No rash, no erythema, no pruritus NEUROLOGIC: Denies weakness, dizziness, headache, numbness, change in speech, confusion PSYCHIATRIC: No concerning psychosocial issues. 12 point review of systems is negative except for those stated above and HPI Patient History Medical History (Updated 08/27/21 @ 18:22 by Siena Pelaez DO) Acne (~2008) Depression Migraines (~2012) Ovarian cyst (~2016) Family History (Updated 02/04/21 @ 21:09 by Lillian Vega) Father Mental health problem Sleep apnea Mother Mental health problem Diabetes mellitus Grandfather Skin cancer Alcoholic Grandmother Mental health problem Grandfather Hypertension Grandmother Breast cancer Social History Smoking Status: Current every day smoker Smoking Status: Current every day smoker alcohol intake frequency: a few times a month Alcohol type: beer Substance Use Type: marijuana Exam Initial Vital Signs Initial Vital Signs: Vital Signs Temperature 98.3 F 08/27/21 13:06 Pulse Rate 83 08/27/21 13:06 Respiratory Rate 18 08/27/21 13:06 Blood Pressure 128/62 08/27/21 13:06 Pulse Oximetry 97 08/27/21 13:06 GENERAL: Alert 20-year-old female in [no acute] distress. HEENT: Head atraumatic,EOMI, pupils reactive, face symmetric, [moist] mucous membranes CARDIOVASCULAR: Regular rate and rhythm without murmurs, rubs or gallops. RESPIRATORY: Breath sounds equal bilaterally, no wheezes rales or rhonchi. ABDOMEN: Soft, nontender. Normoactive bowel sounds all 4 quadrants. No guarding or rebound. EXTREMITIES: Normal range of motion, no clubbing or edema. Neurovascularly intact NEUROLOGICAL: Alert and oriented x4.Normal gait and speech. SKIN: Warm, dry, no laceration, no petechiae, no rashes or lesions. Course Orders Ordered: ED Orders 08/27/21 13:14 COVID19 -Nasal swab/Pre-Proc Stat 08/27/21 16:25 Complete Blood Count AUTO DIFF Stat Comprehensive Metabolic Panel Stat Lipase Stat 08/27/21 18:09 Urine Culture Stat Urine Microscopic Stat Discontinued Medications Sodium Chloride (Normal Saline 0.9%) 1,000 mls @ 1,000 mls/hr IV CONT LINDSEY Last Infusion: 08/27/21 17:51 Dose: 0 mls/hr Documented by: Admin: 08/27/21 16:34 Dose: 1,000 mls/hr Documented by: ESNODGRASS Ondansetron HCl (Ondansetron 4 Mg Odt Prepack) 1 bottle MISC SEEINSTR ONE Stop: 08/27/21 18:39 Last Admin: 08/27/21 18:44 Dose: 1 bottle Documented by: BHARGAVI Vital Signs Vital signs: Vital Signs - 8 hr 08/27/21 13:06 08/27/21 16:15 08/27/21 16:16 Temperature 98.3 F Pulse Rate 83 75 60 Respiratory Rate 18 15 Blood Pressure 128/62 163/78 H Pulse Oximetry 97 99 99 08/27/21 18:42 08/27/21 18:44 Temperature Pulse Rate 65 67 Respiratory Rate Blood Pressure 125/58 L Pulse Oximetry 98 97 MDM - Nausea/Vomiting/Diarrhea Lab Data Result diagrams: 08/27/21 16:25 08/27/21 16:25 Labs: Lab Results 08/27/21 08/27/21 08/27/21 Range/Units 13:14 16:25 16:25 WBC 13.8 H (4.5-11.0) X10^3/uL RBC 5.48 H (4.0-5.2) X10^6/uL Hgb 15.3 (12.0-16.0) g/dL Hct 46.2 H (36-46) % MCV 84.4 (80-100) fL MCH 28.0 (26-34) PG MCHC 33.2 (30-36) % RDW 13.9 (11.6-14.8) % Plt Count 266 (150-400) X10^3/uL Neut % (Auto) 87.0 H (50-75) % Lymph % (Auto) 10.0 L (25-40) % [place] % (Auto) 2.9 L (3-14) % Eos % (Auto) 0.0 L (2-4) % Baso % (Auto) 0.1 (0-2) % Neut # (Auto) 24881 H (6070-7313) /uL Lymph # (Auto) 1400 (0299-5735) /uL [place] # (Auto) 400 (0-900) /uL Eos # (Auto) 0 (0-450) /uL Baso # (Auto) 0 (0-100) /uL Sodium 140 (137-145) mmol/L Potassium 3.9 (3.4-5.1) mmol/L Chloride 102 (98-107) mmol/L Carbon Dioxide 23 (22-32) mmol/L BUN 7 (7-17) mg/dL Creatinine 0.75 (0.52-1.04) mg/dL Estimated GFR > 60.0 (>60) mL/min BUN/Creatinine Ratio 9.3 (6-22) Glucose 121 H (70-100) mg/dL Calcium 10.8 H (8.4-10.2) mg/dL Total Bilirubin 0.9 (0.2-1.3) mg/dL AST 27 (14-36) IU/L ALT 22 (<35) IU/L Alkaline Phosphatase 99 (38-126) U/L Total Protein 9.3 H (6.3-8.2) g/dL Albumin 5.6 H (3.5-5.0) g/dL Globulin 3.7 (1.7-4.1) g/dL Albumin/Globulin Ratio 1.5 (1.0-2.8) Lipase 48 (23-300) U/L Urine RBC (0-5/HPF) Urine WBC (0-5/HPF) Ur Squamous Epith Cells (0-5/HPF) Amorphous Sediment Urine Bacteria (None) Urine Mucus (Negative) Ur Culture Indicated? SARS-CoV-2 (PCR) Negative (Negative) 08/27/21 Range/Units 18:09 WBC (4.5-11.0) X10^3/uL RBC (4.0-5.2) X10^6/uL Hgb (12.0-16.0) g/dL Hct (36-46) % MCV (80-100) fL MCH (26-34) PG MCHC (30-36) % RDW (11.6-14.8) % Plt Count (150-400) X10^3/uL Neut % (Auto) (50-75) % Lymph % (Auto) (25-40) % [place] % (Auto) (3-14) % Eos % (Auto) (2-4) % Baso % (Auto) (0-2) % Neut # (Auto) (6270-2999) /uL Lymph # (Auto) (4063-7252) /uL [place] # (Auto) (0-900) /uL Eos # (Auto) (0-450) /uL Baso # (Auto) (0-100) /uL Sodium (137-145) mmol/L Potassium (3.4-5.1) mmol/L Chloride (98-107) mmol/L Carbon Dioxide (22-32) mmol/L BUN (7-17) mg/dL Creatinine (0.52-1.04) mg/dL Estimated GFR (>60) mL/min BUN/Creatinine Ratio (6-22) Glucose (70-100) mg/dL Calcium (8.4-10.2) mg/dL Total Bilirubin (0.2-1.3) mg/dL AST (14-36) IU/L ALT (<35) IU/L Alkaline Phosphatase (38-126) U/L Total Protein (6.3-8.2) g/dL Albumin (3.5-5.0) g/dL Globulin (1.7-4.1) g/dL Albumin/Globulin Ratio (1.0-2.8) Lipase (23-300) U/L Urine RBC 0-1/hpf (0-5/HPF) Urine WBC 5-10/hpf H (0-5/HPF) Ur Squamous Epith Cells 1-5 /hpf (0-5/HPF) Amorphous Sediment 1+ Urine Bacteria None seen (None) Urine Mucus 2+ H (Negative) Ur Culture Indicated? Specimen cultured SARS-CoV-2 (PCR) (Negative) Point of Care Testing Test Results Negative Urine Dip Bedside Urine Glucose Negative Bedside Urine Bilirubin - Negative Bedside Urine Ketone +++ 80 Urine Specific [place] 1.030 Bedside Urine Occult Blood +/- Bedside Urine pH 6.0 Bedside Urine Protein - Negative Bedside Urine Urobilinogen - Negative Bedside Urine Nitrite - Negative Bedside Urine Leukocytes - Negative Esterase MDM Narrative Medical decision making narrative: Patient has had less than 24 hours of vomiting. Now in the emergency department she is feeling better after fluids and Zofran and tolerating oral fluids. She has a GI a mild leukocytosis. No re al specific abdominal pain. At this time no need for any further imaging. Discussed with her oral rehydration techniques and when to return to the emergency department. Discharge Plan Departure Patient Disposition: Home Clinical Impression: Gastroenteritis Instructions: DI for Viral Gastroenteritis -- Adult Activity Restrictions/Additional Instructions: 1) You have been diagnosed with gastritis 2) What to do: Drink frequent but small amounts of fluids. I recommend Gatorade or a Gatorade-like product, as it has small amounts of sugar and salts that improve fluid retention. 3) Take medications as directed 4) Follow up with your primary care provider in 2-3 days Zofran 4 mg every 8 hours if needed for nausea or vomiting 5) Return to ER if you should have any new or worsening symptoms such as, unable to hold down fluids despite use of anti-nausea medications and the small volume oral rehydration strategy. Prescriptions: New ondansetron 4 mg tablet,disintegrating 4 mg PO Q8H PRN (Reason: nausea and vomiting) Qty: 10 RF: 0 No Action quetiapine 25 mg tablet 25 mg PO TID Qty: 270 RF: 3 lamotrigine 200 mg tablet 200 mg PO BID Qty: 180 RF: 3 gabapentin 300 mg capsule 600 mg PO TID Qty: 360 RF: 3 prazosin 2 mg capsule See Rx Instructions .ROUTE .COMPLEX Qty: 90 RF: 0 ondansetron HCl [Zofran] 4 mg tablet 4 mg PO Q6H PRN (Reason: nausea and vomiting) Qty: 5 RF: 0 Referrals: Mecca Contreras ARNP [Primary Care Provider] -
[2021-08-27 18:19] LABS: Amorphous Sediment Urine 1+; Bacteria Urine None Seen; Culture Indicated Urine Specimen Cultured; Mucus Urine 2+ (Negative); RBC Urine 0-1/HPF (0-5/HPF); Squamous Epithelial Cell Urine 1-5 /HPF (0-5/HPF); WBC Urine 5-10/HPF (0-5/HPF)
[2021-08-27 18:42] VITALS: PULSE 65; O2SAT 98
[2021-08-27 18:44] VITALS: BP 125/58; PULSE 67; O2SAT 97
[2021-08-27] MEDS: ONDANSETRON 4 MG ODT PREPACK 1 BOTTLE MISC (18:44)
== END 2021-08-27 18:50 | disposition home or self-care (01) ==
PROVIDERS: Emergency Provider Emergency Medicine; PCP Registered Nurse
DX: K52.9 Noninfective gastroenteritis and colitis, unspecified (principal); Z20.822 Contact with and (suspected) exposure to COVID-19
CPT/HCPCS: 36415; 80053; 81003; 81015; 81025; 83690; 85025; 87086; 87635; 96361; 96374; 99284; C9803; J2405

== ENCOUNTER → 2022-04-16 08:34 | Outpatient (CLI) | payer OTHER, MEDICAID, SELFPAY ==
[2022-04-16 09:50] LABS: Alanine Aminotransferase 16 IU/L (<35); Albumin 4.4 g/dL (3.5-5.0); Albumin Globulin Ratio 1.8 (1.0-2.8); Alkaline Phosphatase 70 U/L (38-126); Aspartate Aminotransferase 20 IU/L (14-36); BUN Creatinine Ratio 10.6 (6-22); Bilirubin Total 0.4 mg/dL (0.2-1.3); Blood Urea Nitrogen 9 mg/dL (7-17); Calcium 9.1 mg/dL (8.4-10.2); Carbon Dioxide 27 mmol/L (22-32); Chloride 105 mmol/L (98-107); Estimated Glomerular Filt Rate > 60 mL/min (>60); Globulin 2.5 g/dL (1.7-4.1); Glucose 115 mg/dL (70-100); HEMOLYSIS < 15 (0-50); Potassium 4.1 mmol/L (3.4-5.1); Sodium 139 mmol/L (137-145); Total Protein 6.9 g/dL (6.3-8.2)
[2022-04-18 14:08] LABS: Lamotrigine Lamictal 6.4 ug/mL (2.0-20.0)
== END ==
PROVIDERS: PCP Registered Nurse; Referring Provider Psychiatry & Neurology Psychiatry; Visit Provider Psychiatry & Neurology Psychiatry
DX: F31.4 Bipolar disorder, current episode depressed, severe, without psychotic features (principal)
CPT/HCPCS: 36415; 80053; 80175

== ENCOUNTER 2023-03-03 12:56 | Emergency (ER) | payer OTHER, SELFPAY ==
[2023-03-03 12:58] VITALS: BP 137/80; PULSE 66; RESP 16; TEMP 36.4; O2SAT 99; BMI 29.5
--- NOTE | 2023-03-03 13:08 | ED.NAVMDI ---
HPI - Nausea/Vomiting/Diarrhea General Chief complaint: Nausea/Vomiting/Diarrhea Stated complaint: vomiting, diarrhea, possible food poisening Time Seen by Provider: 03/03/23 13:03 Source: patient Mode of arrival: Wheelchair History of Present Illness HPI Narrative: 22-year-old otherwise healthy female who is here for evaluation approximately 16 hours of nausea vomiting and diarrhea. She did recently return from [place]. She is here with her . states that every time that they fly this happens to her. No one else in the family is sick. No known sick contacts. She does have generalized/center of her abdomen tenderness. Related Data Previous Rx's Medication Instructions Recorded lamotrigine 200 mg tablet 200 mg PO BID #180 tabs 06/12/22 gabapentin 300 mg capsule 600 mg PO TID #180 caps 12/03/22 quetiapine 25 mg tablet 25 mg PO TID #90 tabs 12/03/22 ondansetron 4 mg disintegrating 4 mg PO Q6H PRN nausea and 03/03/23 tablet vomiting #14 tabs Allergies Allergy/AdvReac Type Severity Reaction Status Date / Time mirtazapine Allergy Intermediate itching, Verified 12/03/22 13:12 skin crawling sensation sertraline [From Zoloft] AdvReac Severe severe Verified 12/03/22 13:12 migraines Venlafaxine Analogues AdvReac Intermediate Headache Verified 12/03/22 13:12 Review of Systems Constitutional Constitutional: Reports system reviewed and no additional complaints, except as documented Gastrointestinal Gastrointestinal: Reports system reviewed and no additional complaints, except as documented Genitourinary Genitourinary: Reports system reviewed and no additional complaints, except as documented Integumentary/Breasts Skin/Breast: Reports system reviewed and no additional complaints, except as documented Hematologic/Lymphatic On Anticoagulants: No Patient History Medical History Acne (~2008) Depression Migraines (~2012) Ovarian cyst (~2016) Family History (Updated 02/04/21 @ 21:09 by Lillian Vega) Father Mental health problem Sleep apnea Mother Mental health problem Diabetes mellitus Grandfather Skin cancer Alcoholic Grandmother Mental health problem Grandfather Hypertension Grandmother Breast cancer Social History Smoking Status: Current every day smoker Smoking Status: Current every day smoker tobacco type: vaping alcohol intake frequency: a few times a month Alcohol type: beer Substance Use Type: marijuana Exam Initial Vital Signs Initial Vital Signs: Vital Signs Temperature 97.6 F 03/03/23 12:58 Pulse Rate 66 03/03/23 12:58 Respiratory Rate 16 03/03/23 12:58 Blood Pressure 137/80 03/03/23 12:58 Pulse Oximetry 99 03/03/23 12:58 Oxygen Delivery Method Room Air 03/03/23 12:58 Const General: cooperative HENMT Head: normal to inspection Resp Effort & Inspection: normal respiratory effort Cardio Rate: regular rate GI Inspection: normal to inspection and non-distended Palpation: soft and tender Skin General: no rashes or lesions noted Neuro General: patient alert, patient awake and moves all extremities Extrem General: normal to inspection and capillary refill normal Course Orders Ordered: Discontinued Medications Sodium Chloride (Normal Saline 0.9%) 1,000 mls @ 1,000 mls/hr IV BOLUS ONE Stop: 03/03/23 14:03 Last Admin: 03/03/23 13:09 Dose: 1,000 mls/hr Documented By: AJ Ondansetron HCl (Ondansetron 4 Mg/2 Ml Inj) 4 mg IV NOW ONE Stop: 03/03/23 13:05 Last Admin: 03/03/23 13:10 Dose: 4 mg Documented By: AJ Pantoprazole Sodium (Pantoprazole 40 Mg Vial) 40 mg IV NOW ONE Stop: 03/03/23 13:09 Last Admin: 03/03/23 13:11 Dose: 40 mg Documented By: AJ Vital Signs Vital signs: Vital Signs - 8 hr 03/03/23 12:58 Temperature 97.6 F Pulse Rate 66 Respiratory Rate 16 Blood Pressure 137/80 Pulse Oximetry 99 Oxygen Delivery Method Room Air MDM - Nausea/Vomiting/Diarrhea MDM Narrative Medical decision making narrative: Patient stated that she does feel somewhat better after medications here in the ER. She was tolerating oral intake. She is a benign exam. No indication for radiologic studies. No indication for lab work. I did discuss all this with the patient and her who is at bedside. Will attempt to treat symptoms with nausea medication. She was given return precautions. She expressed understanding and agreement. Discharge Plan Departure Patient Disposition: Home Clinical Impression: Nausea, vomiting, and diarrhea Instructions: Diarrhea, Nausea and Vomiting-Adult Activity Restrictions/Additional Instructions: Do recommend that you eat a bland diet for the next couple days. Try to increase your fluid intake. Use the nausea medication as needed. Return to the emergency department for new symptoms. Prescriptions: New ondansetron 4 mg tablet,disintegrating 4 mg PO Q6H PRN (Reason: nausea and vomiting) Qty: 14 0RF No Action lamotrigine 200 mg tablet 200 mg PO BID Qty: 180 3RF gabapentin 300 mg capsule 600 mg PO TID Qty: 180 5RF quetiapine 25 mg tablet 25 mg PO TID Qty: 90 5RF Referrals: Miscellaneous,Doctor, MD [Primary Care Provider] - Stand Alone Forms: Patient Portal/API, Work Release Note
[2023-03-03] MEDS: SODIUM CHLORIDE 0.9% 1,000 ML 1000 ML IV (13:09)
[2023-03-03] MEDS: ONDANSETRON 4 MG/2 ML INJ IV (13:10)
[2023-03-03] MEDS: PANTOPRAZOLE 40 MG VIAL IV (13:11)
[2023-03-03 13:13] VITALS: PULSE 66; O2SAT 99
[2023-03-03 13:30] VITALS: PULSE 57; O2SAT 98
[2023-03-03 14:00] VITALS: PULSE 61; O2SAT 99
[2023-03-03 14:22] VITALS: BP 112/67; PULSE 67; O2SAT 100
== END 2023-03-03 14:26 | disposition home or self-care (01) ==
PROVIDERS: Emergency Provider Emergency Medicine
DX: R11.2 Nausea with vomiting, unspecified (principal); R19.7 Diarrhea, unspecified
CPT/HCPCS: 36415; 96361; 96374; 96375; 99284; C9113; J2405